=== PATIENT | female | born 1995 | race Caucasian/White ===

== ENCOUNTER 2018-08-30 22:38 | Emergency (ER) | payer OTHER ==
[2018-08-30 22:47] VITALS: BP 135/77
--- NOTE | 2018-08-30 23:48 | RADIOLOGY REPORT (SQ) ---
EXAM DESCRIPTION: XR CHEST 2 VIEWS COMPLETED DATE/TME: 08/30/2018 23:22 CLINICAL HISTORY: 23 years, Female, SOB COMPARISON: None. NUMBER OF VIEWS: 2 TECHNIQUE: 2 view chest LIMITATIONS: None. FINDINGS: Heart size normal. Lungs are clear. No pneumothorax IMPRESSION: Negative chest copyright 2010 [employer]- All Rights Reserved
--- NOTE | 2018-08-31 00:15 | ER Document Report ---
HPI - HPI Patient complains to provider of: cough Time Seen by Provider: 08/30/18 23:22 Pain Level: 3 Context: Patient is an otherwise healthy 23-year-old female presents to the emergency department for 4 days of cough and congestion. Patient states she intermittently has some chest discomfort when she takes a deep breath or coughs. Patient is denying any fever, denying any nausea, vomiting, diarrhea, abdominal pain, dysuria, vaginal discharge. Past medical history: None Medications: None Allergies: None Last menstrual cycle 08/25/2018 - REPRODUCTIVE Reproductive: DENIES: : - DERM Skin Color: Normal, [place] Past Medical History - General Information source: Patient - Social History Smoking Status: Never Smoker Chew tobacco use (# tins/day): No Frequency of alcohol use: None Drug Abuse: None Family History: Reviewed & Not Pertinent Patient has suicidal ideation: No Patient has homicidal ideation: No Renal/ Medical History: Denies: Hx Peritoneal Dialysis Vertical Provider Document - CONSTITUTIONAL Agree With Documented VS: Yes Notes: GENERAL: Alert, interacts well. No acute distress. HEAD: Normocephalic, atraumatic. No frontal or maxillary sinus tenderness noted EYES: Pupils equal, round, and reactive to light. Extraocular movements intact. ENT: Oral mucosa moist, tongue midline. Nares patent,, TM's intact, nonerythematous, nonbulging bilaterally. Pharynx within normal limits no palatal petechiae or exudate noted tonsils +1 bilaterally NECK: Full range of motion. Supple. Trachea midline. No lymphadenopathy appreciated LUNGS: Clear to auscultation bilaterally, no wheezes, rales, or rhonchi. No respiratory distress. HEART: Regular rate and rhythm. No murmur Chest: No crepitus felt, no erythema or ecchymosis noted anterior posterior chest wall ABDOMEN: Soft, non-tender. Non-distended. Bowel sounds present in all 4 quadrants. EXTREMITIES: Moves all 4 extremities spontaneously. No edema, normal radial and dorsalis pedis pulses bilaterally. No cyanosis. BACK: no cervical, thoracic, lumbar midline tenderness. No saddle anesthesia, normal distal neurovascular exam. NEUROLOGICAL: Alert and oriented x3. Normal speech. cranial nerves II through XII grossly intact. PSYCH: Normal affect, normal mood. SKIN: Warm, dry, normal turgor. No rashes or lesions noted. - INFECTION CONTROL TRAVEL OUTSIDE OF THE [place] IN LAST 30 DAYS: No Course - Re-evaluation Re-evalutation: 08/31/18 00:13 Patient's chest x-ray reveals no signs of pneumonia, pneumothorax, rib fractures in the emergency department. Discussed likely diagnosis of an upper respiratory infection and need to follow-up with primary care provider. Patient remains non-tachycardic, afebrile, stable for discharge. - Vital Signs Vital signs: Temp Pulse Resp BP Pulse Ox 98.7 F 92 17 135/77 H 99 08/30/18 22:45 08/30/18 22:45 08/30/18 22:45 08/30/18 22:45 08/30/18 22:45 Discharge - Discharge Clinical Impression: Upper respiratory infection Qualifiers: URI type: unspecified viral URI Qualified Code(s): J06.9 - Acute upper respiratory infection, unspecified Condition: Stable Disposition: HOME, SELF-CARE Instructions: Upper Respiratory Illness ([facility]) Additional Instructions: As we discussed you have been seen and treated in the emergency department for an upper respiratory infection. Unfortunately these are caused by viruses and do not respond to antibiotics. Please make sure you are taking [id number] Tylenol and Motrin for generalized body aches and fevers. Please also make sure you are staying well-hydrated.Take prescription medications as prescribed and follow-up with your primary care provider in the next 24-48 hours. Please return to the emergency room should you have any other concerning symptoms. Prescriptions: Benzonatate [Tessalon Perles 100 mg Capsule] 100 mg PO Q8HP PRN #40 capsule PRN Reason: Fluticasone Propionate [Flonase Nasal Engadine 50 Mcg/Engadine 16 gm] 1 spray NASL Q12 #1 inhaler Forms: Return to Work
== END 2018-08-31 00:32 | disposition home or self-care (01) ==
LOC: ER 22:38
DX: J06.9 Acute upper respiratory infection, unspecified (principal); B97.89 Other viral agents as the cause of diseases classified elsewhere; R05 Cough; R09.89 Other specified symptoms and signs involving the circulatory and respiratory systems
CPT/HCPCS: 71046; 99283

== ENCOUNTER 2019-06-07 19:16 | Emergency (ER) | payer OTHER ==
--- NOTE | 2019-06-07 20:36 | ER Document Report ---
ED Medical Screen (RME) - General Chief Complaint: Abdominal Injury Stated Complaint: ABDOMINAL AND BACK PAIN Time Seen by Provider: 06/07/19 20:31 Mode of Arrival: Ambulatory Information source: Patient Notes: 24-year-old female presents emergency department with complaints of diarrhea earlier this week now having lower abdominal pain and right upper quad abdominal pain. Denies fever vomiting. Reports she just had her menses last week. She reports her abdominal feels like period cramps. I have greeted and performed a rapid initial assessment of this patient. A comprehensive ED assessment and evaluation of the patient, analysis of test results and completion of the medical decision making process will be conducted by additional ED providers. Dictation of this chart was performed using voice recognition software; therefore, there may be some unintended grammatical errors. TRAVEL OUTSIDE OF THE [place] IN LAST 30 DAYS: No - Related Data Allergies/Adverse Reactions: guaifenesin [From Mucinex] Allergy (Verified 06/07/19 20:34) Past Medical History - Social History Frequency of alcohol use: None Drug Abuse: None Renal/ Medical History: Denies: Hx Peritoneal Dialysis Physical Exam - Vital signs Vitals: Temp Pulse Resp BP Pulse Ox 97.7 F 87 16 114/63 100 06/07/19 19:52 06/07/19 19:52 06/07/19 19:52 06/07/19 19:52 06/07/19 19:52 Course - Vital Signs Vital signs: Temp Pulse Resp BP Pulse Ox 97.7 F 87 16 114/63 100 06/07/19 20:29 06/07/19 20:29 06/07/19 20:29 06/07/19 20:29 06/07/19 20:29
[2019-06-07 21:12] LABS: APPEARANCE,URINE CLEAR; BILIRUBIN,URINE NEGATIVE (NEGATIVE); COLOR,URINE STRAW; GLUCOSE, URINE NEGATIVE (NEGATIVE); KETONES,URINE TRACE mg/dL (NEGATIVE); LEUKOCYTE ESTERASE,URINE NEGATIVE (NEGATIVE); NITRITE,URINE NEGATIVE (NEGATIVE); PROTEIN,URINE NEGATIVE (NEGATIVE); URINE SPECIFIC GRAVITY 1.003; UROBILINOGEN,URINE NEGATIVE mg/dL (<2.0)
[2019-06-07 21:17] LABS: ALKALINE PHOSPHATASE 64 U/L (38-126); ANION GAP 14 (5-19); ASPARTATE AMINO TRANSFERASE 20 U/L (14-36); BILIRUBIN,DIRECT 0.2 mg/dL (0.0-0.4); BILIRUBIN,TOTAL 0.5 mg/dL (0.2-1.3); BLOOD UREA NITROGEN 9 mg/dL (7-20); CALCIUM 10.1 mg/dL (8.4-10.2); CARBON DIOXIDE 24 mmol/L (22-30); CHLORIDE 105 mmol/L (98-107); GLUCOSE 94 mg/dL (75-110); TOTAL PROTEIN 8.1 g/dL (6.3-8.2)
--- NOTE | 2019-06-07 21:22 | RADIOLOGY REPORT (SQ) ---
EXAM DESCRIPTION: US ABDOMEN LIMITED COMPLETED DATE/TME: 06/07/2019 20:34 CLINICAL HISTORY: 24 years, Female, ruq abd pain COMPARISON: None. TECHNIQUE: Axial 2-D grayscale images of the abdomen were acquired. Doppler was utilized. LIMITATIONS: None. FINDINGS: Visualized portions of the pancreas appear normal. Abdominal aortic measurements are as follows: Proximal: 1.5 cm Mid: 1.3 cm Distal: 1.2 cm Visualized portions of the IVC appear normal. Liver is normal in echogenicity. It measures 14.5 cm in length. Antegrade flow is documented within the main portal vein. Gallbladder wall thickness is 2 mm. Sonographic Penaloza sign was negative. No gallstones. Common bile duct diameter measures 2 to 3 mm. Right kidney measures 11.4 x 4.5 x 5.8 cm in size. No hydronephrosis. No significant free fluid. IMPRESSION: Essentially normal right upper quadrant ultrasound. copyright 2010 [employer]- All Rights Reserved
[2019-06-07 21:23] LABS: ABSOLUTE BASOPHILS # (AUTO) 0.1 10^3/uL (0.0-0.2); ABSOLUTE LYMPHOCYTES (AUTO) 1.6 10^3/uL (0.5-4.7); ABSOLUTE MONOCYTES (AUTO) 0.4 10^3/uL (0.1-1.4); ABSOLUTE NEUT (AUTO) 4.5 10^3/uL (1.7-8.2); BASOPHILS % (AUTO) 1.2 % (0-2); EOSINOPHILS % (AUTO) 0.7 % (0-6); HEMATOCRIT 40.4 % (36.0-47.0); HEMOGLOBIN 13.9 g/dL (12.0-15.5); LYMPHOCYTES % (AUTO) 24.8 % (13-45); MEAN CORPUSCULAR HEMOGLOBIN 29.2 pg (27.0-33.4); MEAN CORPUSCULAR HGB CONC 34.4 g/dL (32.0-36.0); MEAN CORPUSCULAR VOLUME 85 fl (80-97); MONOCYTES % (AUTO) 6.1 % (3-13); PLATELET COUNT 313 10^3/uL (150-450); RED BLOOD COUNT 4.76 10^6/uL (3.72-5.28); RED CELL DISTRIBUTION WIDTH 13.8 % (11.5-14.0); SEGMENTED NEUTROPHILS % (AUTO) 67.2 % (42-78); TOTAL CELLS COUNTED % (AUTO) 100 %; WHITE BLOOD COUNT 6.6 10^3/uL (4.0-10.5)
--- NOTE | 2019-06-08 00:34 | ER Document Report ---
ED General - General Chief Complaint: Abdominal Injury Stated Complaint: ABDOMINAL AND BACK PAIN Time Seen by Provider: 06/07/19 20:31 Mode of Arrival: Ambulatory Information source: Patient Notes: 24-year-old woman presents to the emergency department with concerns about nonspecific abdominal pain which she has developed over the past couple days. She had diarrhea and cramping abdominal pain on Saturday and since that time she has been having intermittent abdominal pain. She was seen in triage and a gallbladder ultrasound and lab work was performed. She denies fever, vomiting or other related GI symptoms at this time. TRAVEL OUTSIDE OF THE [place] IN LAST 30 DAYS: No - Related Data Allergies/Adverse Reactions: guaifenesin [From Mucinex] Allergy (Verified 06/07/19 20:34) Past Medical History - General Information source: Patient - Social History Smoking Status: Never Smoker Frequency of alcohol use: None Drug Abuse: None Family History: Reviewed & Not Pertinent Patient has suicidal ideation: No Patient has homicidal ideation: No Renal/ Medical History: Denies: Hx Peritoneal Dialysis Review of Systems - Review of Systems Notes: Constitutional: Negative for fever. HENT: Negative for sore throat. Eyes: Negative for visual changes. Cardiovascular: Negative for chest pain. Respiratory: Negative for shortness of breath. Gastrointestinal: +abdominal pain, no vomiting Genitourinary: Negative for dysuria. Musculoskeletal: Negative for back pain. Skin: Negative for rash. Neurological: Negative for headaches, weakness or numbness. 10 point ROS negative except as marked above and in HPI. Physical Exam - Vital signs Vitals: Temp Pulse Resp BP Pulse Ox 97.7 F 87 16 114/63 100 06/07/19 19:52 06/07/19 19:52 06/07/19 19:52 06/07/19 19:52 06/07/19 19:52 - Notes Notes: PHYSICAL EXAMINATION: Physical Exam: General: Well-nourished well-developed female in no acute distress HEENT: NC/AT, pupils equal round and reactive to light, MM moist,nares clear, Neck: supple, no adenopathy, no masses. Lungs: clear, no wheezing, no rales no rhonchi CVS: Regular rate and rhythm no murmur gallop or rub Abdomen: Soft active nontender, no masses, no hepatosplenomegaly Ext: No edema clubbing or cyanosis. Neuro: Alert and responsive, moving all 4 extremities on command, cranial nerves intact. Skin: Intact no open lesions, no rash PSYCH: Normal mood, normal affect. Course - Re-evaluation Re-evalutation: 06/08/19 00:38 I discussed the findings of the ultrasound and laboratory data with the patient and explained that there were no acute findings. She seemed relieved to hear that and states that she is now ready to be discharged. I have encouraged her to avoid fried and greasy foods on foods that might be difficult to digest. She notes she had episodic diarrhea on Saturday and has explained to the patient it may be that she is post viral infection with some IBS-like symptoms. She acknowledges an understanding the assessment and is in agreement with the plan - Vital Signs Vital signs: Temp Pulse Resp BP Pulse Ox 97.7 F 87 16 114/63 100 06/07/19 20:29 06/07/19 20:29 06/07/19 20:29 06/07/19 20:29 06/07/19 20:29 - Laboratory Result Diagrams: 06/07/19 20:40 06/07/19 20:40 Laboratory results interpreted by me: 06/07/19 19:17 Urine Ketones TRACE H 06/08/19 00:40 I have reviewed laboratory data and used this information for the treatment decisions regarding the patient. Discharge - Discharge Clinical Impression: Abdominal pain Qualifiers: Abdominal location: unspecified location Qualified Code(s): R10.9 - Unspecified abdominal pain Condition: Good Disposition: HOME, SELF-CARE Instructions: Abdominal Pain ([facility]) Additional Instructions: Use Tylenol for pain Push fluids Avoid fried or greasy foods, foods which might be difficult to digest. Follow-up with your primary care doctor as needed.
[2019-06-08 00:59] VITALS: BP 112/60
== END 2019-06-08 00:45 | disposition home or self-care (01) ==
LOC: ER 19:16
DX: R10.9 Unspecified abdominal pain (principal); M54.9 Dorsalgia, unspecified; R19.7 Diarrhea, unspecified
CPT/HCPCS: 36415; 76705; 80053; 81001; 83690; 84703; 85025; 99284